=== PATIENT | male | born 1965 | race Caucasian/White ===

== ENCOUNTER → 2021-03-05 12:18 | Outpatient (CLI) | payer MEDICAID ==
[2020-07-20 13:23] VITALS: BMI 30.1
[~2021-03-05 12:18] MED LIST: ALBUTEROL2.5 MG/3 M UPD; AMBIEN10 MG PO; FLUTICASONE PRO16 GM NASAL; GABAPENTIN100 MG PO; HYDROCODON-ACE1 EA10 PO; KLONOPIN0.5 MG PO; LIPITOR40 MG PO; LOVENOX40 MG/0.4 SC; METOPROLOL TART50 MG PO; MUCINEX600 MG PO; NICODERM CQ1 EAC1 TRANSDERM; PEPCID40 MG; PREDNISONE5 MG PO; TESSALON PERLE100 MG PO; TIAZAC/CARDIZEM CD PO; XOPENEX 1.1.25 MG/3 UPD; Zosyn 3.375 GM/D5W 5 IV
[2021-03-05 12:54] LABS: BASOPHILS 0.7 % (0-2); EOSINOPHILS 3.3 % (0-7); LYMPHOCYTES 50.7 % (15-50); MCH 26.8 pg (26.0-34.0); MCHC 32.6 g/dL (31.0-37.0); MCV 82.1 fL (80.0-100.0); MEAN PLATELET VOLUME 9.9 fL (7.4-10.4); MONOCYTES 9.1 % (2-11); NEUTROPHILS 36.2 % (40-80); RDW 17.2 % (11.5-14.5); WBC 8.1 10x3/uL (4.8-10.8)
[2021-03-05 12:58] LABS: RBC 1.79 10x6/uL (4.20-6.10)
[2021-03-05 12:59] LABS: HEMOGLOBIN 4.8 g/dL (13.5-17.5)
[2021-03-05 13:00] LABS: HEMATOCRIT 14.7 % (42.0-54.0); PLATELET COUNT 384 10x3/uL (130-400)
[2021-03-05 13:12] LABS: ALBUMIN 2.6 g/dL (3.4-5.0); ANION GAP 12.5 mmol/L (8-16); BILIRUBIN - TOTAL 0.17 mg/dL (0.2-1.3); CALCIUM 8.7 mg/dL (8.5-10.1); CARBON DIOXIDE 24.6 mmol/L (21.0-32.0); CREATININE - SERUM 1.2 mg/dL (0.6-1.3); MAGNESIUM - SERUM 1.8 mg/dL (1.8-2.4); PHOSPHOROUS 3.8 mg/dL (2.5-4.9); POTASSIUM - SERUM 4.1 mmol/L (3.5-5.1); PROTEIN - SERUM 6.7 g/dL (6.4-8.2)
== END | disposition home or self-care (01) ==
LOC: D.LABREF 12:18
PROVIDERS: ATTEND Internal Medicine
DX: A41.9 Sepsis, unspecified organism (principal)

== ENCOUNTER → 2021-03-08 10:05 | Outpatient (CLI) | payer MEDICAID ==
[2020-07-20 13:23] VITALS: BMI 30.1
[2021-03-08 11:58] LABS: BASOPHILS 0.9 % (0-2); EOSINOPHILS 3.9 % (0-7); HEMATOCRIT 23.4 % (42.0-54.0); HEMOGLOBIN 7.7 g/dL (13.5-17.5); LYMPHOCYTES 44.9 % (15-50); MCH 26.6 pg (26.0-34.0); MCHC 32.8 g/dL (31.0-37.0); MCV 81.1 fL (80.0-100.0); MEAN PLATELET VOLUME 9.9 fL (7.4-10.4); MONOCYTES 7.9 % (2-11); NEUTROPHILS 42.4 % (40-80); PLATELET COUNT 374 10x3/uL (130-400); RBC 2.89 10x6/uL (4.20-6.10)
== END | disposition home or self-care (01) ==
LOC: D.LABREF 10:05
PROVIDERS: ATTEND Internal Medicine
DX: T80.219A Unspecified infection due to central venous catheter, initial encounter (principal); A41.02 Sepsis due to Methicillin resistant Staphylococcus aureus